=== PATIENT | male | born 2000 | race Asian ===

== ENCOUNTER → 2022-04-11 | Outpatient (CLI) | payer OTHER ==
[~2022-04-11] MED LIST: CEPH500C
== END ==
LOC: M SOG 09:50
PROVIDERS: ATTEND Orthopaedic Surgery Hand Surgery
DX: M79.641 Pain in right hand (principal)

== ENCOUNTER 2022-04-12 10:37 | Day surgery (SDC) | payer OTHER ==
[~2022-04-12] VITALS: Ht 162.6 cm; Wt 60.1 kg
[2022-04-12] MEDS ORDERED: CEPH500C (11:03)
[2022-04-12] MEDS ORDERED: LR 1,000 ML IV SCH (11:05)
[2022-04-12] MEDS ORDERED: LIDOCAINE 2% 100MG/5ML SDV (FOR ANES.) As Ordered ONE (12:09)
[2022-04-12] MEDS ORDERED: propofoL 200 MG/20 ML VIAL As Ordered ONE (12:09)
[2022-04-12] MEDS ORDERED: fentaNYL 100 MCG/2 ML INJECTION As Ordered ONE (12:10)
[2022-04-12] MEDS ORDERED: MIDAZOLAM INJ 2MG/2ML VIAL (J2250 PER 1MG) As Ordered ONE (12:10)
[2022-04-12] MEDS ORDERED: ONDANSETRON 4MG 2ML VIAL As Ordered ONE (12:21)
[2022-04-12] MEDS ORDERED: BUPIVACAINE HCL 0.25% 30ML VIAL As Ordered ONE (12:39)
[2022-04-12] MEDS ORDERED: ceFAZolin 2 GM/D5W 50 ML IV BAG As Ordered ONE (12:39)
[2022-04-12] MEDS ORDERED: BACITRACIN OINTMENT 30GM TUBE As Ordered ONE (12:52)
[2022-04-12] MEDS ORDERED: fentaNYL 100 MCG/2 ML INJECTION IV PRN (13:30)
[2022-04-12] MEDS ORDERED: ONDANSETRON 4MG 2ML VIAL IV PRN (13:30)
[2022-04-12] MEDS ORDERED: oxyCODONE 5MG TAB PO PRN (13:30)
[2022-04-12 14:08] VITALS: BP 134/80
== END 2022-04-12 14:45 | disposition home or self-care (01) ==
LOC: M SDC 10:37
PROVIDERS: ATTEND Orthopaedic Surgery Hand Surgery
DX: S66.326A Laceration of extensor muscle, fascia and tendon of right little finger at wrist and hand level, initial encounter (principal); W22.8XXA Striking against or struck by other objects, initial encounter; Y92.89 Other specified places as the place of occurrence of the external cause; Y93.9 Activity, unspecified
CPT/HCPCS: 26418; J0690; J1100; J2250; J2405; J3010